=== PATIENT | male | born 1930 | race Caucasian/White ===

== ENCOUNTER → 2016-05-08 | Outpatient (CLI) | payer OTHER, BC ==
[~2016-05-08] MED LIST: ACET-1256 PO; AMLO2.5T PO; Amoxicillin/Clavulanate Potas PO; CALCTAB5 PO; DUTA0.5C PO; MCTP EXT; PRD10 PO; PRT40 PO; RMR15 PO
[2016-05-08 10:19] LABS: INR 3.1 (0.9-1.1); PROTHROMBIN TIME (PATIENT) 34.8 SECONDS (9.0-12.0)
== END | disposition home or self-care (01) ==
LOC: C.LABFOXDH 09:41
PROVIDERS: ATTEND Internal Medicine
DX: I48.2 Chronic atrial fibrillation (principal)

== ENCOUNTER → 2016-05-29 | Outpatient (CLI) | payer OTHER, BC ==
[2016-05-29 09:36] LABS: PROTHROMBIN TIME (PATIENT) 42.3 SECONDS (9.0-12.0)
[2016-05-29 09:39] LABS: INR 3.7 (0.9-1.1)
== END | disposition home or self-care (01) ==
LOC: C.LABFOXDH 08:42
PROVIDERS: ATTEND Internal Medicine
DX: I48.2 Chronic atrial fibrillation (principal)

== ENCOUNTER → 2016-06-12 | Outpatient (CLI) | payer OTHER, BC ==
[2016-06-12 09:52] LABS: PROTHROMBIN TIME (PATIENT) 33.5 SECONDS (9.0-12.0)
== END | disposition home or self-care (01) ==
LOC: C.LABFOXDH 08:49
PROVIDERS: ATTEND Internal Medicine
DX: I48.2 Chronic atrial fibrillation (principal)

== ENCOUNTER → 2016-07-03 | Outpatient (CLI) | payer OTHER, BC ==
[2016-07-03 10:53] LABS: INR 2.5 (0.9-1.1); PROTHROMBIN TIME (PATIENT) 27.5 SECONDS (9.0-12.0)
== END | disposition home or self-care (01) ==
LOC: C.LABFOXDH 10:20
PROVIDERS: ATTEND Internal Medicine
DX: I48.91 Unspecified atrial fibrillation (principal)

== ENCOUNTER → 2016-07-30 | Outpatient (CLI) | payer OTHER, BC ==
[2016-07-30 08:50] LABS: INR 2.4 (0.9-1.1)
== END | disposition home or self-care (01) ==
LOC: C.LABFOXDH 07:53
PROVIDERS: ATTEND Internal Medicine
DX: I48.91 Unspecified atrial fibrillation (principal)

== ENCOUNTER → 2016-08-27 | Outpatient (CLI) | payer OTHER, BC ==
[2016-08-27 10:45] LABS: INR 2.3 (0.9-1.1); PARTIAL THROMBOPLASTIN RATIO 1.4; PROTHROMBIN TIME (PATIENT) 25.3 SECONDS (9.0-12.0)
== END | disposition home or self-care (01) ==
LOC: C.LABFOXDH 10:11
PROVIDERS: ATTEND Internal Medicine
DX: I48.91 Unspecified atrial fibrillation (principal)

== ENCOUNTER → 2016-09-25 | Outpatient (CLI) | payer OTHER, BC ==
[2016-09-25 11:13] LABS: BLOOD UREA NITROGEN 28 mg/dl (7-18); BUN/CREATININE RATIO 20.2 (10-20); CALCIUM 8.3 mg/dl (8.5-10.1); CARBON DIOXIDE 27 mmol/L (21-32); CHLORIDE 109 mmol/L (98-107); GLUCOSE 84 mg/dl (70-99); POTASSIUM 4.6 mmol/L (3.5-5.1); SODIUM 143 mmol/L (136-145)
[2016-09-25 11:23] LABS: INR 2.8 (0.9-1.1); PROTHROMBIN TIME (PATIENT) 31.7 SECONDS (9.0-12.0)
== END | disposition home or self-care (01) ==
LOC: C.LABFOXDH 09:49
PROVIDERS: ATTEND Internal Medicine
DX: I48.91 Unspecified atrial fibrillation (principal)

== ENCOUNTER → 2016-10-22 | Outpatient (CLI) | payer OTHER, BC ==
[2016-10-22 10:19] LABS: INR 2.5 (0.9-1.1); PROTHROMBIN TIME (PATIENT) 27.7 SECONDS (9.0-12.0)
== END | disposition home or self-care (01) ==
LOC: C.LABFOXDH 09:16
PROVIDERS: ATTEND Nurse Practitioner Family
DX: I48.91 Unspecified atrial fibrillation (principal)

== ENCOUNTER → 2016-11-05 | Outpatient (CLI) | payer OTHER, BC ==
[2016-11-05 09:23] LABS: INR 2.8 (0.9-1.1); PROTHROMBIN TIME (PATIENT) 31.3 SECONDS (9.0-12.0)
--- NOTE | 2016-11-07 15:31 | CODING QUERY NO DIAGNOSIS ---
SUPPORTING DIAGNOSIS NEEDED A supporting diagnosis is required for the test/procedure performed on this patient in order for us to be reimbursed by the patient's insurance. Please provide a supporting diagnosis for the following test/procedure listed below next to the test name along with your signature. *If there is no additional diagnosis for this patient that would support the following test/procedure please document that below next to the test/procedure. Test(s)/Procedure(s) that require a supporting diagnosis: * PT/INR DIAGNOSIS: Provider Signature: Date: Thank you Regina Lam [employer] Information Management Once completed, please kindly fax back to [phone] For questions please call [phone]
== END | disposition home or self-care (01) ==
LOC: C.LABFOXDH 08:17
PROVIDERS: ATTEND Nurse Practitioner Family
DX: I48.2 Chronic atrial fibrillation (principal)

== ENCOUNTER → 2016-11-13 | Outpatient (CLI) | payer OTHER, BC ==
[2016-11-13 10:18] LABS: INR 2.9 (0.9-1.1); PROTHROMBIN TIME (PATIENT) 32.6 SECONDS (9.0-12.0)
== END | disposition home or self-care (01) ==
LOC: C.LABFOXDH 09:03
PROVIDERS: ATTEND Internal Medicine
DX: I48.91 Unspecified atrial fibrillation (principal)

== ENCOUNTER → 2016-11-19 | Outpatient (CLI) | payer OTHER, BC ==
[2016-11-19 09:40] LABS: INR 3.3 (0.9-1.1); PROTHROMBIN TIME (PATIENT) 36.7 SECONDS (9.0-12.0)
== END | disposition home or self-care (01) ==
LOC: C.LABFOXDH 09:03
PROVIDERS: ATTEND Internal Medicine
DX: I48.91 Unspecified atrial fibrillation (principal)

== ENCOUNTER → 2016-11-26 | Outpatient (CLI) | payer OTHER, BC ==
[2016-11-26 08:49] LABS: INR 2.5 (0.9-1.1); PROTHROMBIN TIME (PATIENT) 27.4 SECONDS (9.0-12.0)
== END | disposition home or self-care (01) ==
LOC: C.LABFOXDH 08:17
PROVIDERS: ATTEND Internal Medicine
DX: I48.91 Unspecified atrial fibrillation (principal)

== ENCOUNTER → 2016-12-10 | Outpatient (CLI) | payer OTHER, BC ==
[2016-12-10 08:35] LABS: INR 3.3 (0.9-1.1); PROTHROMBIN TIME (PATIENT) 37.4 SECONDS (9.0-12.0)
== END | disposition home or self-care (01) ==
LOC: C.LABFOXDH 08:08
PROVIDERS: ATTEND Nurse Practitioner Family
DX: I48.91 Unspecified atrial fibrillation (principal)

== ENCOUNTER → 2016-12-24 | Outpatient (CLI) | payer OTHER, BC ==
[2016-12-24 10:46] LABS: INR 2.8 (0.9-1.1); PROTHROMBIN TIME (PATIENT) 31.7 SECONDS (9.0-12.0)
== END | disposition home or self-care (01) ==
LOC: C.LABFOXDH 09:50
PROVIDERS: ATTEND Internal Medicine
DX: I48.91 Unspecified atrial fibrillation (principal)

== ENCOUNTER → 2017-01-14 | Outpatient (CLI) | payer OTHER, BC ==
[2017-01-14 09:01] LABS: INR 2.5 (0.9-1.1); PROTHROMBIN TIME (PATIENT) 27.4 SECONDS (9.0-12.0)
== END | disposition home or self-care (01) ==
LOC: C.LABFOXDH 08:39
PROVIDERS: ATTEND Internal Medicine
DX: I48.91 Unspecified atrial fibrillation (principal)

== ENCOUNTER → 2017-02-04 | Outpatient (CLI) | payer OTHER, BC ==
[2017-02-04 08:54] LABS: INR 3.3 (0.9-1.1); PROTHROMBIN TIME (PATIENT) 37.5 SECONDS (9.0-12.0)
== END | disposition home or self-care (01) ==
LOC: C.LABFOXDH 08:34
PROVIDERS: ATTEND Internal Medicine
DX: I48.91 Unspecified atrial fibrillation (principal)

== ENCOUNTER → 2017-02-18 | Outpatient (CLI) | payer OTHER, BC ==
[2017-02-18 08:23] LABS: INR 1.9 (0.9-1.1); PROTHROMBIN TIME (PATIENT) 20.5 SECONDS (9.0-12.0)
== END | disposition home or self-care (01) ==
LOC: C.LABFOXDH 07:51
PROVIDERS: ATTEND Internal Medicine
DX: I48.91 Unspecified atrial fibrillation (principal)

== ENCOUNTER → 2017-03-25 | Outpatient (CLI) | payer OTHER, BC ==
[2017-03-25 08:41] LABS: INR 2.3 (0.9-1.1); PROTHROMBIN TIME (PATIENT) 25.4 SECONDS (9.0-12.0)
== END | disposition home or self-care (01) ==
LOC: C.LABFOXDH 08:10
PROVIDERS: ATTEND Internal Medicine
DX: I48.91 Unspecified atrial fibrillation (principal)

== ENCOUNTER → 2017-04-22 | Outpatient (CLI) | payer OTHER, BC ==
[2017-04-22 09:42] LABS: INR 2.4 (0.9-1.1); PROTHROMBIN TIME (PATIENT) 24.8 SECONDS (9.0-12.0)
== END | disposition home or self-care (01) ==
LOC: C.LABFOXDH 09:04
PROVIDERS: ATTEND Internal Medicine
DX: I48.91 Unspecified atrial fibrillation (principal)

== ENCOUNTER → 2017-05-17 | Outpatient (CLI) | payer OTHER, BC ==
[2017-05-17 08:20] LABS: HEMATOCRIT 33.9 % (42-52); MEAN CELL VOLUME 94.4 fL (80-100); MEAN CORPUSCULAR HEMOGLOBIN 30.6 pg (25-34); MEAN CORPUSCULAR HGB CONC 32.4 g/dl (32-36); MEAN PLATELET VOLUME 10.8 fL (7.4-10.4); PLATELET COUNT 167 K/uL (130-400); RED CELL DISTRIBUTION WIDTH CV 14.9 % (11.5-14.5); RED CELL DISTRIBUTION WIDTH SD 51.2 fL (36.4-46.3)
[2017-05-17 08:28] LABS: INR 2.3 (0.9-1.1)
[2017-05-17 08:30] LABS: ALBUMIN 3.1 gm/dl (3.4-5.0); ALT/SGPT 21 U/L (12-78); BLOOD UREA NITROGEN 24 mg/dl (7-18); CALCIUM 8.2 mg/dl (8.5-10.1); CARBON DIOXIDE 24 mmol/L (21-32); CREATININE 1.35 mg/dl (0.60-1.40); GLUCOSE 99 mg/dl (70-99); POTASSIUM 4.1 mmol/L (3.5-5.1); SODIUM 143 mmol/L (136-145)
[2017-05-17 08:33] LABS: ALKALINE PHOSPHATASE 64 U/L (45-117); AST/SGOT 14 U/L (15-37); TOTAL PROTEIN 5.7 gm/dl (6.4-8.2)
== END | disposition home or self-care (01) ==
LOC: C.LABFOXDH 07:58
PROVIDERS: ATTEND Internal Medicine
DX: Z01.810 Encounter for preprocedural cardiovascular examination (principal); Z45.010 Encounter for checking and testing of cardiac pacemaker pulse generator [battery]; I44.2 Atrioventricular block, complete; I48.2 Chronic atrial fibrillation

== ENCOUNTER → 2017-05-20 | Outpatient (CLI) | payer OTHER, BC ==
[~2017-05-20] MED LIST changes: +CMD125 PO; +FSMD/70 PO; +FURO-85 PO; +IMD/2 PO; +METO25TA3 PO; +MIRT15TA2 PO; +POTA10CA28 PO; +PRED-301 PO
[2017-05-20 09:20] LABS: INR 2.2 (0.9-1.1)
== END | disposition home or self-care (01) ==
LOC: C.LABFOXDH 08:15
PROVIDERS: ATTEND Internal Medicine
DX: I48.91 Unspecified atrial fibrillation (principal)

== ENCOUNTER → 2017-05-21 | Day surgery (SDC) | payer OTHER, BC ==
[~2017-05-21] VITALS: Ht 174 cm; Wt 61.0 kg
[~2017-05-21] MED LIST changes: +BACITRACIN 50000 UNIT VIAL ONE; +BUPIVACAINE 0.5 % 5 MG/1 ML MPF 30ML VIAL ONE; +CEFAZOLIN SOD 1 GM VIAL ONE; +FENTANYL CITRATE INJ 50 MCG/1 ML 2 ML VIAL ONE; +LACTATED RINGER'S 1000ML 1,000 ML IV SCH; +LIDOCAINE HCL 1% 20 ML VIAL ONE; +MIDAZOLAM HCL 5 MG/ML 1 ML VIAL ONE
[2017-05-21 10:31] VITALS: BP 158/78; PULSE 66; TEMP 36.3; O2SAT 99; Ht 174 cm; Wt 61.0 kg
--- NOTE | 2017-05-21 10:56 | History & Physical Bridge Note ---
H&P Re-Evaluation Bridge Note: I have examined the patient, reviewed the History & Physical and in the interval since the performance of the History & Physical I have noted the following changes of clinical significance: No changes noted
--- NOTE | 2017-05-21 10:57 | Pre Sedation Assessment ---
Pre Sedation Assessment General Date of Sedation: May 21, 2017. Vital Signs Past 12 Hours Date Time Temp Pulse Resp B/P (MAP) Pulse Ox O2 Delivery O2 Flow Rate FiO2 05/21/17 10:31 36.3 66 20 158/78 (104) 99 Room Air Review Cardiovascular: regular rate, rhythm Lungs: lungs clear Pre-Sedation Airway Assessment Smoking Status: Former Smoker Hx of Sleep Apnea: No Hx of difficult intubation: No Short Thick Neck: No Thyro-mental Distance: < or =3 Finger Breadths Oral Cavity: Dentures Mallampati Classification: Class II ASA Classification: Class II Procedure Planning Contraindications for Sedation: None Current Medications Reviewed: Yes Notes The planned sedation has been discussed with the patient. Informed Consent was obtained. I have identified the patient, determined the appropriateness of sedation and have assessed the patient immediately prior to the procedure. All medicine(s) and interventions are by my order.
--- NOTE | 2017-05-21 12:51 | Post Sedation Assessment ---
Post Sedation Assessment General Date of Sedation May 21, 2017. Vital Signs: Vital Signs Past 12 Hours Date Time Temp Pulse Resp B/P (MAP) Pulse Ox O2 Delivery O2 Flow Rate FiO2 05/21/17 12:45 69 16 130/70 (90) 97 Room Air 05/21/17 12:40 72 16 117/67 (84) 97 Room Air 05/21/17 12:35 69 16 119/67 (84) 97 Room Air 05/21/17 12:30 79 16 125/69 (87) 98 Room Air 05/21/17 10:31 36.3 66 20 158/78 (104) 99 Room Air Post Procedure Recovery Score Activity: (2) Moves 4 extremities * Respiration: (2) Deep breath/cough Circulation: (2) +/-20% PreAnes Value Consciousness: (2) Fully Awake Oxygen Saturation: (2) > 92% On Room Air Post Anesthesia Score: 10 Discharge Sedation Level of Care: Fast Track Phase II Post Sedation Plan On clinical assessment, the patient appears to have tolerated the sedation without complications. Patient is recovering as anticipated. Patient will continue to be monitored by nursing and may be discharged when sedation discharge criteria are met per below protocol. Upon Completions of procedure and additional 15 minutes continue every 5 minute vital signs and the P.A.R. score; then discharge to a Phase I or Fast Track to Phase II per the following guidelines: * Discharge Patient to appropriate Phase II area if PAR is 8 or greater or return to pre- procedure baseline. The post - procedure orders will be as directed. * If PAR score is less than 8 or not return to pre-procedure baseline then patient will follow Phase I monitoring till PAR is reached for Phase II. The Phase I may be done in procedure room or may call to secure a Phase I area. * If naloxone or flumazenil are used for reversal, hold in Phase I for an additional 60 -120 minutes before discharge to Phase II. Please call the Sedation Physician to re-evaluate and complete post-note for discharge to Phase II area. Do NOT discharge from procedure sedation or Phase 1 until post- sedation evaluation note is complete by procedure /sedation MD Sedation Discharge Instructions to be given to the patient at discharge to home.
--- NOTE | 2017-05-21 12:51 | [facility] Post Operative Brief Note ---
Immediate Operative Summary Operative Date May 21, 2017. Pre-Operative Diagnosis ppm [place] [facility] Post-Operative Diagnosis same Procedure(s) Performed dual chamber rate responsive pacemaker generator change Surgeon jennifer rodriguez [employer] Assembler Surgeon(s) none Estimated Blood Loss <5cc Findings see official report Fluids (cc crystalloids) 100 Specimens none Drains none Anesthesia 3mg versed and 50mcg fentatnyl Complication(s) None Disposition asu/mtu
--- NOTE | 2017-05-21 12:53 | Discharge Instructions ---
Discharge Instructions Date of Service May 21, 2017. Visit Reason for Visit: Pacemaker Battery Depletion Discharge Discharge Diagnosis / Problem: pacemaker at [facility] Discharge Goals Goal(s): Improve function Activity Recommendations Activity Limitations: as noted below Lifting Limitations: no more than 10 pounds (do not lift more than 10 pounds with the left arm for 2 weeks) Shower/Bathe: tomorrow Driving or Machine Use: resume 1 day after discharge Anesthesia . Post Anesthesia Instructions: If you have had General Anesthesia or IV Sedation: * Do not drive today. * Resume driving when surgeon permits. * Do not make important decisions or sign legal documents today. * Call surgeon for: 1. Temperature elevations greater than 101 degrees F. 2. Uncontrollable pain. 3. Excessive bleeding. 4. Persistent nausea and vomiting. 5. Medication intolerance (nausea, vomiting or rash). * For nausea and vomiting use only clear liquids such as: tea, soda, bouillon until nausea subsides, then gradually increase diet as tolerated. * If you have any concerns or questions, call your surgeon's office. If physician is unavailable and it is an emergency, call 911 or go to the nearest emergency room. . Instructions / Follow-Up Instructions / Follow-Up ACTIVITY RECOMMENDATIONS: * Do not lift more than 10 pounds with the left arm for 2 weeks SPECIAL CARE INSTRUCTIONS: * If bleeding occurs, apply direct pressure to area for 5 minutes. * Call your doctor if you have severe pain, fever, drainage or bleeding at site. * Keep dressing on and dry for 24 hours then remove. * Keep any scheduled doctor's appointment. * Implant Card - hand held device with website information given. SKIN IRRITATION: * You may experience some redness and/or swelling in the area where radiation was administered. If any skin irritation occurs, please contact your family physician. FOLLOW UP VISIT: Keep any scheduled doctor appointments. Diet Recommendations Recommended Home Diet: resume previous diet Procedures Procedures Performed: dual chamber rate responsive pacemaker generator change Pending Studies Studies pending at discharge: no Medical Emergencies . Who to Call and When: Medical Emergencies: If at any time you feel your situation is an emergency, please call 911 immediately. . Non-Emergent Contact Non-Emergency issues call your: Counterintelligence Analyst . . "Provider Documentation" section prepared by Jaylin Lama. .
[2017-05-21 13:00] VITALS: BP 150/73; PULSE 60; TEMP 36.3; O2SAT 98
[2017-05-21 13:15] VITALS: BP 152/76; PULSE 64; TEMP 36.3; O2SAT 100
[2017-05-21 13:30] VITALS: BP 150/72; PULSE 60; O2SAT 98
--- NOTE | 2017-05-21 13:50 | OPERATIVE REPORT ---
DATE OF OPERATION: 05/21/2017 PREOPERATIVE DIAGNOSIS: Complete heart block, pacemaker at elective replacement indicator. POSTOPERATIVE DIAGNOSIS: Same. PROCEDURE: Dual chamber rate responsive permanent pacemaker generator change. SURGEON: Dr. Jaylin Lama. ROUNDING AND BACKING MACHINE OPERATOR: None. ANESTHESIA: Monitored conscious sedation administered under my supervision by David Kirkland. Start time 12:10, end time 12:30. A total of 3 mg of Versed, 50 mcg of fentanyl. INTRAVENOUS FLUIDS: 100 mL. BLOOD LOSS: Less than 5 mL. COMPLICATIONS: None. CONDITION: Stable. URINE OUTPUT: Not applicable. SPECIMENS: None. FINDINGS: None. DRAINS: None. 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 At his most recent device check he was found to hit RA[facility] and was recommended a generator change. CONSENT: Consent was obtained prior to the patient going into the electrophysiology lab. The patient was informed of the risks, benefits and alternatives to the procedure. Risks include but not limited to sudden cardiac , cardiac arrhythmias, cerebrovascular accident, myocardial infarction, bleeding and infection. The patient understood these risks and agreed to undergo the procedure as planned. Informed consent was obtained. DESCRIPTION OF THE PROCEDURE: The patient was brought into the electrophysiology lab in a fasting state. He was connected to continuous cardiac monitoring. A timeout was performed to ensure patient's identity and procedure correctly. The patient received prophylactic antibiotics prior to incision. He was prepped and draped over the left infraclavicular space in normal surgical standard fashion. Monitored conscious sedation was given throughout the procedure for patient's comfort level under my supervision. [place] precautions were maintained throughout the procedure. Ten mL of 1% lidocaine, bupivacaine mixture were given over the device area. Incision was made over the device and blunt dissection was performed down to the capsule. The capsule was disrupted and the device was freed from the capsule and removed from the body. The leads were tested intraoperatively, see below for results. The pocket was disrupted inferiorly and caudally to allow for new blood flow. The pocket was then flushed with copious amounts of bacitracin saline wash and inspected for hemostasis. The new leads were attached to the new pulse generator making sure that the pins were appropriate, passed the set screws and set screws were all tightened. Pulse generator was then placed back in the pocket, making sure that the leads were lying flat beneath the device. The incision was closed in a 3-layer fashion using 2-0 Vicryl interrupted suture followed by 3-0 Vicryl interrupted suture followed by a 4-0 Monocryl stitch and Dermabond was applied. EQUIPMENT: 1. The new pulse generator was a [employer] MRI SureScan [id number], serial #[id number]. . 2. Right atrial lead model #5076, serial #[id number]. 3. Right ventricular lead model #5076, serial #[id number]. INTRAOPERATIVE TESTIN. Right atrial lead fib waves are 0.6-0.8 millivolts. 2. Right ventricular lead no R-waves as the patient has complete heart block. Impedance 395 ohms, threshold 0.6 volts at 1.3 milliamps. FINAL MEASUREMENTS THROUGH THE DEVICE: 1. Right atrial lead fib waves 0.8 millivolts, impedance 475 ohms, no threshold testing as patient was in atrial fibrillation. 2. Right ventricular lead: R-wave 6.4 millivolts, I believe this was a PVC, impedance 380 ohms, threshold 0.75 at 0.4 milliseconds. FINAL PARAMETERS: VVIR 60/120. Right atrial amplitude 2 volts, pulse width 0.4 milliseconds, sensitivity 0.9 millivolts. IMPRESSION: Successful dual chamber rate responsive permanent pacemaker generator change secondary to complete heart block and pacemaker RA[facility]. PLAN: Monitor patient post sedation. He can continue his home medications. He should not lift more than 10 pounds with the left arm for 2 weeks. He can remove the pressure dressing tomorrow and shower tomorrow. He should follow up in our [facility] office for device and wound check in 7-10 days. I attest to the content of the Intraoperative Record and any orders documented therein. Any exceptions are noted below. NANCIE
== END | disposition home or self-care (01) ==
LOC: C.ACU 09:53
PROVIDERS: ATTEND Internal Medicine
DX: I44.2 Atrioventricular block, complete (principal); I48.2 Chronic atrial fibrillation; I10 Essential (primary) hypertension; E78.5 Hyperlipidemia, unspecified; Z95.0 Presence of cardiac pacemaker; I08.0 Rheumatic disorders of both mitral and aortic valves; Z79.01 Long term (current) use of anticoagulants; Z79.899 Other long term (current) drug therapy; Z79.82 Long term (current) use of aspirin; Z87.891 Personal history of nicotine dependence

== ENCOUNTER → 2017-06-17 | Outpatient (CLI) | payer OTHER, BC ==
[~2017-06-17] MED LIST changes: -AMLO2.5T PO; -Amoxicillin/Clavulanate Potas PO; -BACITRACIN 50000 UNIT VIAL ONE; -BUPIVACAINE 0.5 % 5 MG/1 ML MPF 30ML VIAL ONE; -CALCTAB5 PO; -CEFAZOLIN SOD 1 GM VIAL ONE; -FENTANYL CITRATE INJ 50 MCG/1 ML 2 ML VIAL ONE; -LACTATED RINGER'S 1000ML 1,000 ML IV SCH; -LIDOCAINE HCL 1% 20 ML VIAL ONE; -MCTP EXT; -METO25TA3 PO; +METO25TA4 PO; -MIDAZOLAM HCL 5 MG/ML 1 ML VIAL ONE; -PRD10 PO; -PRT40 PO; -RMR15 PO
== END | disposition home or self-care (01) ==
LOC: C.LABFOXDH 08:19
PROVIDERS: ATTEND Internal Medicine
DX: I48.91 Unspecified atrial fibrillation (principal)

== ENCOUNTER → 2017-07-15 | Outpatient (CLI) | payer OTHER, BC ==
[2017-07-15 09:07] LABS: INR 2.2 (0.9-1.1)
== END | disposition home or self-care (01) ==
LOC: C.LABFOXDH 08:26
PROVIDERS: ATTEND Internal Medicine
DX: I48.91 Unspecified atrial fibrillation (principal)

== ENCOUNTER → 2017-08-12 | Outpatient (CLI) | payer OTHER, BC ==
[2017-08-12 08:16] LABS: INR 2.6 (0.9-1.1)
== END | disposition home or self-care (01) ==
LOC: C.LABFOXDH 07:56
PROVIDERS: ATTEND Internal Medicine
DX: I48.91 Unspecified atrial fibrillation (principal)

== ENCOUNTER → 2017-09-09 | Outpatient (CLI) | payer OTHER, BC ==
[2017-09-09 08:26] LABS: INR 2.2 (0.9-1.1)
== END | disposition home or self-care (01) ==
LOC: C.LABFOXDH 07:57
PROVIDERS: ATTEND Internal Medicine
DX: I48.91 Unspecified atrial fibrillation (principal)

== ENCOUNTER → 2017-11-21 | Outpatient (CLI) | payer OTHER, BC ==
[~2017-11-21] MED LIST changes: -ACET-1256 PO; +ALLO100T PO; +CEPH500C2 PO; +CHOL100027 PO; +CHOL2000 PO; +CMD05 PO; -CMD125 PO; +CYAN1LOZ; +DOXY100C41 PO; +FRS/40 PO; -FURO-85 PO; -IMD/2 PO; -MIRT15TA2 PO; +MIRT1TAB27 PO; +POLY335025 PO; +RANI150T85 PO
[2017-11-21 08:39] LABS: HEMOGLOBIN 12.2 g/dL (14.0-18.0); MEAN CELL VOLUME 91.6 fL (80-100); MEAN CORPUSCULAR HEMOGLOBIN 30.2 pg (25-34); PLATELET COUNT 206 K/uL (130-400); RED CELL DISTRIBUTION WIDTH CV 15.4 % (11.5-14.5); RED CELL DISTRIBUTION WIDTH SD 51.6 fL (36.4-46.3); WHITE BLOOD COUNT 6.53 K/uL (4.8-10.8)
[2017-11-21 08:46] LABS: INR 1.6 (0.9-1.1)
[2017-11-21 08:48] LABS: BLOOD UREA NITROGEN 23 mg/dl (7-18); CALCIUM 8.3 mg/dl (8.5-10.1); CARBON DIOXIDE 25 mmol/L (21-32); CREATININE 1.31 mg/dl (0.60-1.40); GLUCOSE 70 mg/dl (70-99); POTASSIUM 4.5 mmol/L (3.5-5.1); SODIUM 137 mmol/L (136-145)
== END | disposition home or self-care (01) ==
LOC: C.LABFOXDH 07:57
PROVIDERS: ATTEND Internal Medicine
DX: I48.91 Unspecified atrial fibrillation (principal)

== ENCOUNTER → 2017-11-26 | Outpatient (CLI) | payer OTHER, BC ==
[~2017-11-26] MED LIST changes: +ACET-1256 PO; +ACET-1311 PO; +ACET650S10 RE; +BISA10SU38 PR; +CYAN100020 PO; +GLYCDRO6 OPB; +IMD/2 PO; +MOML PO; +ONDA4TAB46 PO
[2017-11-26 09:10] LABS: BLOOD UREA NITROGEN 25 mg/dl (7-18); CALCIUM 8.2 mg/dl (8.5-10.1); CARBON DIOXIDE 27 mmol/L (21-32); CREATININE 1.28 mg/dl (0.60-1.40); GLUCOSE 69 mg/dl (70-99); POTASSIUM 4.3 mmol/L (3.5-5.1); SODIUM 142 mmol/L (136-145); URIC ACID 9.9 mg/dl (2.6-7.2)
[2017-11-26 09:13] LABS: INR 1.7 (0.9-1.1)
--- NOTE | 2017-12-05 08:50 | CODING QUERY NO DIAGNOSIS ---
Valid Physician Order Needed A valid physician order must be submitted in order to properly bill for the service(s) provided, including date of service(s), valid diagnosis, and physician signature. If these tests are done on a recurring basis the original physician order must be submitted in order to code and bill for the service(s) provided. Please fax us the original, signed physician order so that we may expedite billing to [phone] DOS 11/26/17 (Attached order is missing signature) * Partial Renal Profile * Uric Acid * Prothrombin Time Profile Thank you Ofe Knox [employer] Information Management
== END | disposition home or self-care (01) ==
LOC: C.LABFOXDH 08:47
PROVIDERS: ATTEND Internal Medicine
DX: I48.91 Unspecified atrial fibrillation (principal); N18.3 Chronic kidney disease, stage 3 (moderate)

== ENCOUNTER → 2017-12-03 | Outpatient (CLI) | payer OTHER, BC ==
[~2017-12-03] MED LIST changes: -ACET-1256 PO; -ACET-1311 PO; -ACET650S10 RE; -BISA10SU38 PR; -CEPH500C2 PO; -CYAN100020 PO; -GLYCDRO6 OPB; -IMD/2 PO; -MOML PO; -ONDA4TAB46 PO
[2017-12-03 10:17] LABS: INR 2.1 (0.9-1.1)
== END | disposition home or self-care (01) ==
LOC: C.LABFOXDH 08:10
PROVIDERS: ATTEND Internal Medicine
DX: I48.91 Unspecified atrial fibrillation (principal)

== ENCOUNTER → 2017-12-10 | Outpatient (CLI) | payer OTHER, BC ==
[~2017-12-10] MED LIST changes: +ACET-1256 PO; +ACET-1311 PO; +ACET650S10 RE; +BISA10SU38 PR; +CYAN100020 PO; +GLYCDRO6 OPB; +IMD/2 PO; +MOML PO; +ONDA4TAB46 PO
== END | disposition home or self-care (01) ==
LOC: C.RDSM 08:45
PROVIDERS: ATTEND Physical Medicine & Rehabilitation Sports Medicine
DX: M79.675 Pain in left toe(s) (principal)

== ENCOUNTER → 2017-12-10 | Outpatient (CLI) | payer OTHER, BC ==
[2017-12-10 11:07] LABS: INR 3.5 (0.9-1.1)
== END | disposition home or self-care (01) ==
LOC: C.LABFOXDH 07:59
PROVIDERS: ATTEND Internal Medicine
DX: I48.91 Unspecified atrial fibrillation (principal)

== ENCOUNTER → 2017-12-17 | Outpatient (CLI) | payer OTHER, BC ==
[~2017-12-17] MED LIST changes: -CHOL100027 PO; -CYAN1LOZ
[2017-12-17 10:40] LABS: INR 3.6 (0.9-1.1)
== END | disposition home or self-care (01) ==
LOC: C.LABFOXDH 08:49
PROVIDERS: ATTEND Internal Medicine
DX: I48.91 Unspecified atrial fibrillation (principal)

== ENCOUNTER → 2017-12-18 | Outpatient (CLI) | payer OTHER, BC | END | disposition home or self-care (01) | LOC: C.LABFOXDH 13:46 | PROVIDERS: ATTEND Physician Assistant | DX: Z01.818 Encounter for other preprocedural examination (principal); M86.9 Osteomyelitis, unspecified ==

== ENCOUNTER → 2017-12-19 | Outpatient (CLI) | payer OTHER, BC ==
[2017-12-19 08:19] LABS: BLOOD UREA NITROGEN 35 mg/dl (7-18); CALCIUM 8.3 mg/dl (8.5-10.1); CARBON DIOXIDE 28 mmol/L (21-32); CREATININE 1.32 mg/dl (0.60-1.40); GLUCOSE 71 mg/dl (70-99); POTASSIUM 4.4 mmol/L (3.5-5.1); SODIUM 138 mmol/L (136-145)
== END | disposition home or self-care (01) ==
LOC: C.LABFOXDH 07:46
PROVIDERS: ATTEND Nurse Practitioner Family
DX: I10 Essential (primary) hypertension (principal)

== ENCOUNTER → 2017-12-24 | Outpatient (CLI) | payer OTHER, BC ==
[~2017-12-24] MED LIST changes: +ERGO500037 PO
[2017-12-24 08:43] LABS: INR 1.4 (0.9-1.1)
== END | disposition home or self-care (01) ==
LOC: C.LABFOXDH 08:20
PROVIDERS: ATTEND Internal Medicine
DX: I48.91 Unspecified atrial fibrillation (principal)

== ENCOUNTER → 2017-12-30 | Outpatient (CLI) | payer OTHER, BC ==
[2017-12-30 10:48] LABS: INR 1.2 (0.9-1.1)
== END | disposition home or self-care (01) ==
LOC: C.LABFOXDH 10:28
PROVIDERS: ATTEND Internal Medicine
DX: I48.91 Unspecified atrial fibrillation (principal)